=== PATIENT | male | born 1950 | race Caucasian/White ===

== ENCOUNTER 2024-01-20 06:23 | Outpatient (CLI) | payer MEDICARE, SELFPAY ==
--- NOTE | 2024-01-20 07:42 | P.ANES_ITS ---
Anesthesia Charges Start Date/Time Anesthesia Start Date: 01/20/24 Anesthesia Start Time: 07:10 Stop Date/Time Anesthesia Stop Date: 01/20/24 Anesthesia Stop Time: 07:38 Summary Extremes of Age - Over 70 or under 1: [employer]ING [employer]
--- NOTE | 2024-01-20 12:07 | W.ANESCHARGE ---
Anesthesia Charges Start Date/Time Anesthesia Start Date: 01/20/24 Anesthesia Start Time: 07:10 Stop Date/Time Anesthesia Stop Date: 01/20/24 Anesthesia Stop Time: 07:38 Summary Extremes of Age - Over 70 or under 1: MDA
== END 2024-01-20 06:24 | disposition home or self-care (01) ==
LOC: OP CLINIC 06:27
PROVIDERS: PCP Family Medicine; Visit Provider Internal Medicine Gastroenterology
DX: Z12.11 Encounter for screening for malignant neoplasm of colon (principal); K63.5 Polyp of colon; Z86.010 Personal history of colon polyps
CPT/HCPCS: 45380; 45385; 811; 88305; 99100; J2704